=== PATIENT | female | born 1990 | race Caucasian/White ===

== ENCOUNTER 2022-02-24 08:42 | Emergency (ER) | payer MEDICAID ==
[~2022-02-24] VITALS: Ht 167.6 cm; Wt 79.5 kg
[2022-02-24 10:48] VITALS: BP 111/79
== END 2022-02-24 12:46 | disposition home or self-care (01) ==
LOC: ER 08:43
DX: U07.1 COVID-19 (principal); J06.9 Acute upper respiratory infection, unspecified; Z56.0 Unemployment, unspecified
CPT/HCPCS: 87635; 99283; C9803